=== PATIENT | male | born 1965 | race Caucasian/White ===

== ENCOUNTER → 2022-12-17 | Day surgery (SDC) | payer MEDICAID ==
[~2022-12-17] VITALS: Ht 162.6 cm; Wt 89.8 kg
[~2022-12-17] MED LIST: BUPIVACAINE HCL/PF 0.5% (5MG/ML) 10ML ONE; CHOL100046 PO; FENTANYL CITRATE/PF 50MCG/ML 2ML VIAL ONE; GLYCOPYRROLATE 0.2 MG/ML 2ML VIAL ONE; HYDROMORPHONE HCL/PF 2MG/ML CPJ IV PRN; LABETALOL 5MG/ML SYR 20 MG/4 ML SYRINGE IV PRN; LACTATED RINGERS 1,000 ML IV SCH; LIDOCAINE HCL 1% 10 MG/ML 10ML VIAL ONE; LIP40 PO; MEPERIDINE HCL/PF 25MG/ML CPJ IV PRN; MIDAZOLAM HCL 2 MG/2 ML VIAL ONE; NEOSTIGMINE METHYLSULFATE 1MG/ML 10 ML VIAL ONE; ONDANSETRON HCL 4MG/2ML INJ IV PRN; PROPOFOL 200MG/20ML VIAL IV ONE; ROCURONIUM BROMIDE 10MG/ML VIAL 5ML IV ONE; SKIN ADHESIVE 0.7 GM EA TOP ONE; VITAMIN D PO
[2022-12-17 11:43] VITALS: BP 118/75; PULSE 60; RESP 22
== END | disposition home or self-care (01) ==
LOC: OR 05:58
PROVIDERS: ATTEND Surgery
DX: K40.90 Unilateral inguinal hernia, without obstruction or gangrene, not specified as recurrent (principal); E78.00 Pure hypercholesterolemia, unspecified; Z79.899 Other long term (current) drug therapy; Z98.890 Other specified postprocedural states
CPT/HCPCS: 49505; J3010; J3490 ×4; J2250; J2405; J2704; J1170; C1781; J2710